=== PATIENT | female | born 1975 | race Hispanic/Latino ===

== ENCOUNTER → 2018-12-16 | Outpatient (CLI) | payer OTHER | END | disposition home or self-care (01) | LOC: OIH 13:38 | PROVIDERS: ATTEND Internal Medicine | DX: I10 Essential (primary) hypertension (principal) | CPT/HCPCS: 71046 ==

== ENCOUNTER → 2020-11-17 | Outpatient (CLI) | payer OTHER | END | disposition home or self-care (01) | LOC: OIH 15:33 | PROVIDERS: ATTEND Internal Medicine | DX: S93.601A Unspecified sprain of right foot, initial encounter (principal); S83.92XA Sprain of unspecified site of left knee, initial encounter; X58.XXXA Exposure to other specified factors, initial encounter; Y93.89 Activity, other specified; Y92.89 Other specified places as the place of occurrence of the external cause; Y99.8 Other external cause status | CPT/HCPCS: 73560; 73620 ==

== ENCOUNTER 2022-10-28 08:57 | Emergency (ER) | payer OTHER ==
[~2022-10-28] VITALS: Ht 154.9 cm; Wt 93.4 kg
[2022-10-28] MEDS: DIPHENHYDRAMINE HCL 25 MG CAPSULE PO ONE (10:25)
[2022-10-28 11:07] VITALS: BP 132/68
== END 2022-10-28 11:14 | disposition home or self-care (01) ==
LOC: EDH 08:57
DX: J02.9 Acute pharyngitis, unspecified (principal); R11.2 Nausea with vomiting, unspecified; R09.81 Nasal congestion; Z20.822 Contact with and (suspected) exposure to COVID-19; E11.9 Type 2 diabetes mellitus without complications; E78.00 Pure hypercholesterolemia, unspecified
CPT/HCPCS: 99283; 87635; 87880; 87804 ×2; Q0163; C9803

== ENCOUNTER 2023-11-04 12:12 | Emergency (ER) | payer OTHER ==
[~2023-11-04] VITALS: Ht 157.5 cm; Wt 81.2 kg
[2023-11-04] MEDS ORDERED: KETOROLAC 30MG VIAL (30MG/ML) IM ONE (14:30)
[2023-11-04] MEDS ORDERED: IBUP-2077 PO (16:38)
[2023-11-04 16:55] VITALS: BP 141/90; PULSE 90; RESP 18; O2SAT 98
== END 2023-11-04 17:14 | disposition home or self-care (01) ==
LOC: EDH 12:12
DX: S92.352A Displaced fracture of fifth metatarsal bone, left foot, initial encounter for closed fracture (principal); M79.672 Pain in left foot; M79.89 Other specified soft tissue disorders; M25.572 Pain in left ankle and joints of left foot; E11.9 Type 2 diabetes mellitus without complications; E78.00 Pure hypercholesterolemia, unspecified; F32.A Depression, unspecified; X50.1XXA Overexertion from prolonged static or awkward postures, initial encounter; Y93.89 Activity, other specified; Y92.89 Other specified places as the place of occurrence of the external cause; Y99.8 Other external cause status
CPT/HCPCS: 99284; 73610; 73630; 96372; J1885

== ENCOUNTER 2024-06-09 12:18 | Emergency (ER) | payer MEDICARE, OTHER ==
[~2024-06-09] VITALS: Ht 154.9 cm; Wt 94.3 kg
[~2024-06-09 12:18] MED LIST: IBUP-2077 PO
[2024-06-09 13:38] VITALS: BP 137/83; PULSE 75; RESP 20; O2SAT 99
[2024-06-09] MEDS: IBUPROFEN 800 MG TAB PO ONE (13:49)
== END 2024-06-09 14:13 | disposition home or self-care (01) ==
LOC: EDH 12:18
DX: M23.92 Unspecified internal derangement of left knee (principal)
CPT/HCPCS: 29505; 73562